=== PATIENT | female | born 1985 | race American Indian/Alaskan Native ===

== ENCOUNTER 2016-05-04 12:09 | Outpatient (CLI) | payer OTHER ==
[2016-05-04 12:33] LABS: Basophils % (Auto) 0.6 % (0.0-1.8); Eosinophils % (Auto) 1.7 % (0.0-4.3); Hematocrit 38.4 % (30.3-42.9); Hemoglobin 12.8 gm/dl (10.1-14.3); Mean Corpuscular HGB Conc 33 % (30-34); Mean Corpuscular Hemoglobin 29 pg (28-32); Mean Corpuscular Volume 88 fl (79-97); Platelet Count 263 K/mm3 (140-440); Red Blood Count 4.35 M/mm3 (3.65-5.03); Red Cell Distribution Width 13.9 % (13.2-15.2); White Blood Count 4.8 K/mm3 (4.5-11.0)
[2016-05-04 13:13] LABS: Alanine Aminotransferase 15 units/L (7-56); Albumin 3.8 g/dL (3.9-5); Albumin/Globulin Ratio 1.1 %; Alkaline Phosphatase 56 units/L (35-129); Anion Gap 13 mmol/L; Bilirubin,Total 0.3 mg/dL (0.1-1.2); Blood Urea Nitrogen 8 mg/dL (7-17); Calcium 8.9 mg/dL (8.4-10.2); Carbon Dioxide 25 mmol/L (22-30); Chloride 101.7 mmol/L (98-107); Glucose 92 mg/dL (65-100); Potassium 3.8 mmol/L (3.6-5.0); Sodium 136 mmol/L (137-145); Total Protein 7.3 g/dL (6.3-8.2)
== END 2016-05-04 12:10 | disposition home or self-care (01) ==
LOC: LAB 12:09
PROVIDERS: ATTEND Internal Medicine
DX: F41.9 Anxiety disorder, unspecified (principal)
CPT/HCPCS: 36415; 80053; 85025

== ENCOUNTER 2017-11-02 10:14 | Observation (INO) | payer OTHER ==
[2017-11-02] MEDS ORDERED: ZOFRAN IV PRN (11:32)
[2017-11-02] MEDS ORDERED: COLACE PO PRN (11:32)
[2017-11-02] MEDS ORDERED: AMBIEN PO PRN (11:32)
[2017-11-02] MEDS ORDERED: TYLENOL PO PRN (11:32)
--- NOTE | 2017-11-02 11:40 | History and Physical Report ---
History of Present Illness Date of examination: 11/02/17 (sent from office elevated BP;panic attack) Date of admission: 11/02/17 10:14 History of present illness: EDC Confirmation: 01/25/2018 Gestational Age: 13 weeks Past History : 4 Term Births: 3 Premature Births: 0 Living Children: 3 Para: 3 Mult. Births: 0 Prev : 2 Prev. attempt? none Aborta: 0 Elect. Ab: 0 Spont. Ab: 0 Ectopics: 0 # 1 Delivery date: 04/09/2002 Weeks Gestation: 40 labor: no Delivery type: Hours of labor: ? Anesthesia type: epidural Delivery location: [place] Sex: Male weight: 6-0 Name: Benjamín # 2 Delivery date: 05/06/2003 Weeks Gestation: 40 labor: no Delivery type: Hours of labor: 18 Anesthesia type: epidural Delivery location: [place] Infant Sex: Female weight: 7-0 Name: Linalauriejose Comments: FRANKLYNHT # 3 Delivery date: 02/02/2010 Weeks Gestation: 39 labor: no Delivery type: Anesthesia type: spinal Delivery location: [place] Infant Sex: Male weight: 6-2 Name: Martin Past Medical History: Anxiety Hospitalizations for panic attacks Past Surgical History: (2003) (2009) Family History Summary: Other family member - Has No Family History of Ovarvian Cancer - Entered On: Other family member - Has No Family History of Colon Cancer - Entered On: 2017 Other family member - Has No Family History of Breast Cancer - Entered On: 2017 Other family member - Has Family History of Hypertension - Entered On: 07/20/2017 Social History: Patient is single Risk Factors: Smoked Tobacco Use: Never smoker Drug use: yes Substance: marijuana HIV high-risk behavior: low risk Alcohol use: no Dietary Counseling: pn yes Past Medical History 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 of genital herpes: no Genetic History Congenital Heart Defect: Mom: no Dad: no Filiberto Disease: Mom: no Dad: no Thalassemia Mom: no Dad: no Neural Tube Defect Mom: no Dad: no Down's Syndrome Mom: no Dad: no Morgan-Sachs Mom: no Dad: no Sickle Cell Disease/Trait Mom: no Dad: no Hemophilia Mom: no Dad: no Muscular Dystrophy Mom: no Dad: no Cystic Fibrosis Mom: no Dad: no [place] Chorea Mom: no Dad: no Mental Retardation Mom: no Dad: no Fragile X Mom: no Dad: no Other Genetic/Chromosomal Disorder Mom: no Dad: no Child w/other defect Mom: no Dad: no Enviromental Exposures Xray Exposure: no Medication, drug, or alcohol use since LMP: yes Chemical/Other Exposure: no Exposure to Cat Liter: no Current Allergies (reviewed today): * PNC (Critical) Past History - Obstetrical History Expected Date of Delivery: 01/25/18 Actual Gestation: 28 Week(s) 0 Day(s) : 4 Para: 3 (c/s X 2) Hx # Term Pregnancies: 3 Number of Living Children: 3 Medications and Allergies Allergies Allergy/AdvReac Type Severity Reaction Status Date / Time Penicillins AdvReac Severe Swelling Verified 11/02/17 12:24 - Vital Signs Vital signs: Vital Signs Pulse Pulse Ox 70 98 11/02/17 10:16 11/02/17 10:16 Temp Pulse Resp BP Pulse Ox 70 98 11/02/17 10:16 11/02/17 10:16 - Physical Exam Breasts: Positive: deferred Cardiovascular: Regular rate, Normal S1, Normal S2 Lungs: Positive: Clear to auscultation, Normal air movement Abdomen: Positive: normal appearance, soft, normal bowel sounds. Negative: distention, tenderness Genitourinary (Female): Positive: normal external genitalia Vulva: both: normal Vagina: Positive: normal moisture. Negative: discharge Cervix: Negative: lesion, discharge Uterus: Positive: normal size, normal contour Adnexa: both: normal Anus/Rectum: Positive: normal perianal skin, heme negative. Negative: rectal mass, hemorrhoids Extremities: Positive: edema Deep Tendon Reflex Grade: Normal +2 - Obstetrical FHR: auscultation normal (doppler in office; Will have EFM when admitted) Uterine Contraction Pattern: Absent Uterine Tone Measurement Phase: Resting Results All other labs normal. HBsAg Screen Negative Negative *1 RPR Non Reactive Non Reactive *2 Rubella Antibodies, IgG 2.02 index Immune >0.99 *3 Non-immune <0.90 Equivocal 0.90 - 0.99 Immune >0.99 ABO Grouping O *4 Rh Factor Positive *5 Please note: Prior records for this patient's ABO / Rh type are not available for additional verification. Antibody Screen Negative Negative *6 WBC 6.4 x10E3/uL 3.4-10.8 *7 RBC 4.19 x10E6/uL 3.77-5.28 *8 Hemoglobin 12.7 g/dL 11.1-15.9 *9 Hematocrit 39.0 % 34.0-46.6 *10 MCV 93 fL 79-97 *11 MCH 30.3 pg 26.6-33.0 *12 MCHC 32.6 g/dL 31.5-35.7 *13 RDW 14.6 % 12.3-15.4 *14 Platelets 258 x10E3/uL 150-379 *15 Neutrophils 61 % Not Estab. *16 Lymphs 31 % Not Estab. *17 Monocytes 7 % Not Estab. *18 Eos 1 % Not Estab. *19 Basos 0 % Not Estab. *20 ! Immature Cells <No Reported Value> *21 Neutrophils (Absolute) 3.9 x10E3/uL 1.4-7.0 *22 Lymphs (Absolute) 2.0 x10E3/uL 0.7-3.1 *23 Monocytes(Absolute) 0.4 x10E3/uL 0.1-0.9 *24 Eos (Absolute) 0.1 x10E3/uL 0.0-0.4 *25 Baso (Absolute) 0.0 x10E3/uL 0.0-0.2 *26 ! Immature Granulocytes 0 % Not Estab. *27 ! Immature Grans (Abs) 0.0 x10E3/uL 0.0-0.1 *28 ! NRBC <No Reported Value> *29 Hematology Comments: <No Reported Value> *30 Tests: (2) Panel 769113 ([id number]) HIV Screen 4th Generation wRfx Non Reactive Non Reactive *31 Tests: (3) HCV Ab w/Rflx to Verification ([id number]) ! HCV Ab <0.1 s/co ratio 0.0-0.9 *32 Tests: (4) Comment: ([id number]) ! Comment: SPRCS *33 Non reactive HCV antibody screen is consistent with no HCV infection, unless recent infection is suspected or other evidence exists to indicate HCV infection. Tests: (5) Urine Culture, Routine ([id number]) Urine Culture, Routine Final report *34 Tests: (6) Result ([id number]) ! Result 1 MUG *35 Mixed urogenital janel 25,000-50,000 colony forming units per mL Assessment and Plan 32yo @ 28 weeks with elevated BP in office. Pt c/o panic attack today that is worse. She denies JACOBS, blurred vision, chest pain. Will continue medications: prozac, ASA 81mg, IVFs ordered, 24hr urine to be completed. Monitor BPs US for BPP and YOSHI/EFW. aware. - Patient Problems (1) 28 weeks gestation of Onset Date: ~11/02/17 Current Visit: Yes Status: Acute (2) Anxiety attack Onset Date: ~11/02/17 Current Visit: Yes Status: Acute (3) Edema during in third trimester Onset Date: ~11/02/17 Current Visit: Yes Status: Acute (4) Elevated blood pressure complicating in third trimester, antepartum Onset Date: ~11/02/17 Current Visit: Yes Status: Acute (5) Morbid obesity with BMI of 40.0-44.9, adult Onset Date: ~11/02/17 Current Visit: Yes Status: Acute (6) Panic attack Onset Date: ~11/02/17 Current Visit: Yes Status: Acute (7) Previous section Onset Date: ~11/02/17 Current Visit: Yes Status: Acute
[2017-11-02] MEDS ORDERED: LACTATED RINGERS 1,000 ML IV SCH (12:00)
[2017-11-02] MEDS ORDERED: LOPRESSOR PO SCH (12:00)
[2017-11-02 14:38] LABS: Basophils % (Auto) 0.3 % (0.0-1.8); Eosinophils # (Auto) 0.1 K/mm3 (0.0-0.4); Eosinophils % (Auto) 0.8 % (0.0-4.3); Hematocrit 34.4 % (30.3-42.9); Hemoglobin 12.1 gm/dl (10.1-14.3); Lymphocytes # (Auto) 2.2 K/mm3 (1.2-5.4); Lymphocytes % (Auto) 31.2 % (13.4-35.0); Mean Corpuscular HGB Conc 35 % (30-34); Mean Corpuscular Hemoglobin 32 pg (28-32); Mean Corpuscular Volume 91 fl (79-97); Monocytes # (Auto) 0.3 K/mm3 (0.0-0.8); Monocytes % (Auto) 4.1 % (0.0-7.3); Platelet Count 228 K/mm3 (140-440); Red Blood Count 3.78 M/mm3 (3.65-5.03); Red Cell Distribution Width 13.5 % (13.2-15.2)
[2017-11-02 14:52] LABS: Alanine Aminotransferase 21 units/L (7-56); Uric Acid 2.1 mg/dL (3.5-7.6)
[2017-11-02] MEDS: PROzac PO SCH (15:33)
[2017-11-02] MEDS: BABY ASPIRIN PO SCH (15:34)
[2017-11-02 16:02] LABS: Bacteria,Urine 1+ /HPF (Negative); Bilirubin,Urine NEG (Negative); Blood,Urine NEG (Negative); Color,Urine Yellow (Yellow); Mucus,Urine 3+ /HPF
[2017-11-02 16:13] LABS: Amphetamine Screen,Urine PRESUMPTIVE NEGATIVE; Benzodiazepines Screen,Urine PRESUMPTIVE NEGATIVE; Cocaine Screen,Urine PRESUMPTIVE NEGATIVE; Methadone Screen,Urine PRESUMPTIVE NEGATIVE; Opiate Screen,Urine PRESUMPTIVE NEGATIVE
[2017-11-02 16:32] LABS: Cannabinoid Screen,Urine PRESUMPTIVE POSITIVE
[2017-11-02] MEDS ORDERED: ATIVAN PO SCH (22:00)
--- NOTE | 2017-11-02 23:24 | Ultrasound Report ---
FINAL REPORT PROCEDURE: US OB FOLLOW UP TECHNIQUE: Real-time transabdominal sonography of the uterus, placenta, amniotic fluid, adnexa, and fetus was performed with image documentation. Measurements were obtained to determine age/size. M-mode Doppler was used to document heartbeat. CPT 21157 HISTORY: elevated blood pressure COMPARISON: No prior studies are available for comparison. FINDINGS: ADDITIONAL GESTATION: None. GENERAL: IUP: Single living intrauterine . Position: Cephalic Placental position: Posterior, without previa. Amniotic fluid volume: Normal. MATERNAL: Uterus: Within normal limits. Cervical length: 4.3 cm. Internal Os: Closed. FETUS: Heart rate and rhythm: 157 beats per minute, regular MEASUREMENTS: BPD: 6.7 centimeters corresponding to 27 weeks and 0 days HC: 24.9 centimeters corresponding to 27 weeks and 0 days AC: 22.6 centimeters corresponding to 27 weeks and 0 days FL: 5.4 centimeters corresponding to 28 weeks and 3 days Mean Gestational Age (composite criteria): 27 weeks and 3 days Ratio biometry: Normal. Estimated Weight: 1083 grams. Estimated Due Date): 01/29/2018 IMPRESSION: Single intrauterine gestation at 27 weeks and 3 days. Estimated due date: 01/29/2018. Growth.
--- NOTE | 2017-11-02 23:25 | Ultrasound Report ---
FINAL REPORT PROCEDURE: US OB BPP WO NON-STRESS TECHNIQUE: Sonographic evaluation for breathing, movement, tone, and amniotic fluid volume was performed. CPT 67359 HISTORY: elevated blood pressure COMPARISON: No prior studies are available for comparison. FINDINGS: Amniotic fluid volume: Normal-score 2. At least one vertical pocket > 2 cm or more in vertical axis. breathing: Normal-score 2. movement: Normal-score 2. tone: Normal. Score: 8 of 8. IMPRESSION: Normal biophysical profile.
[2017-11-03 06:18] VITALS: BP 120/70
--- NOTE | 2017-11-03 08:12 | Progress Note ---
Assessment and Plan patient resting w/o complaints, 24h urine in progress done @ 1240 today.VSSAF. b /p's normal. She denies JACOBS, visual changes, epigastric, ctx, vag bleeding or leaking. Patient reports + FM. Plan of care to be reassessed after 24h urine results. - Patient Problems (1) 28 weeks gestation of Onset Date: ~11/02/17 Current Visit: Yes Status: Acute (2) Anxiety attack Onset Date: ~11/02/17 Current Visit: Yes Status: Acute (3) Elevated blood pressure complicating in third trimester, antepartum Onset Date: ~11/02/17 Current Visit: Yes Status: Acute Subjective - Subjective Date of service: 11/03/17 Principal diagnosis: IUP @ 28+1 - 24h urine in progress Patient reports: other (denies JACOBS, visual changes or epigastric pain), no new complaints Objective - Vital Signs Vital Signs: Vital Signs - 12hr 11/02/17 11/02/17 11/02/17 20:10 20:15 20:20 Temperature Pulse Rate 86 86 79 Respiratory Rate Blood Pressure Blood Pressure [Left] O2 Sat by Pulse 100 99 96 Oximetry 11/02/17 11/02/17 11/02/17 20:21 20:25 20:26 Temperature Pulse Rate 76 86 78 Respiratory Rate Blood Pressure Blood Pressure [Left] O2 Sat by Pulse 93 96 94 Oximetry 11/02/17 11/02/17 11/02/17 20:30 20:35 20:40 Temperature Pulse Rate 80 75 77 Respiratory Rate Blood Pressure Blood Pressure [Left] O2 Sat by Pulse 99 98 95 Oximetry 11/02/17 11/02/17 11/02/17 20:45 20:50 20:55 Temperature Pulse Rate 78 81 79 Respiratory Rate Blood Pressure Blood Pressure [Left] O2 Sat by Pulse 99 97 98 Oximetry 11/02/17 11/02/17 11/02/17 21:00 21:05 21:10 Temperature Pulse Rate 92 H 80 82 Respiratory Rate Blood Pressure Blood Pressure [Left] O2 Sat by Pulse 100 100 99 Oximetry 11/02/17 11/02/17 11/02/17 21:15 21:20 21:25 Temperature Pulse Rate 80 87 83 Respiratory Rate Blood Pressure Blood Pressure [Left] O2 Sat by Pulse 99 99 100 Oximetry 11/02/17 11/02/17 11/02/17 21:30 21:35 21:40 Temperature Pulse Rate 84 79 85 Respiratory Rate Blood Pressure Blood Pressure [Left] O2 Sat by Pulse 100 100 100 Oximetry 11/02/17 11/02/17 11/02/17 21:45 21:50 21:55 Temperature Pulse Rate 79 83 73 Respiratory Rate Blood Pressure 102/56 Blood Pressure [Left] O2 Sat by Pulse 100 100 100 Oximetry 11/02/17 11/02/17 11/02/17 22:00 22:08 22:09 Temperature Pulse Rate 85 87 105 H Respiratory Rate Blood Pressure Blood Pressure [Left] O2 Sat by Pulse 99 40 L 79 L Oximetry 11/02/17 11/02/17 11/02/17 22:14 22:15 22:19 Temperature 98.7 F Pulse Rate 81 80 Respiratory Rate Blood Pressure Blood Pressure [Left] O2 Sat by Pulse 100 100 Oximetry 11/02/17 11/02/17 11/02/17 22:24 22:29 22:34 Temperature Pulse Rate 76 71 75 Respiratory Rate Blood Pressure Blood Pressure [Left] O2 Sat by Pulse 99 98 99 Oximetry 11/02/17 11/02/17 11/02/17 22:39 22:44 22:49 Temperature Pulse Rate 78 81 83 Respiratory Rate Blood Pressure Blood Pressure [Left] O2 Sat by Pulse 99 99 82 L Oximetry 11/02/17 11/02/17 11/02/17 22:50 22:55 23:00 Temperature Pulse Rate 80 75 69 Respiratory Rate Blood Pressure Blood Pressure [Left] O2 Sat by Pulse 100 100 99 Oximetry 11/02/17 11/02/17 11/02/17 23:05 23:10 23:15 Temperature Pulse Rate 76 76 76 Respiratory Rate Blood Pressure Blood Pressure [Left] O2 Sat by Pulse 99 99 100 Oximetry 11/02/17 11/02/17 11/02/17 23:20 23:25 23:30 Temperature Pulse Rate 72 72 78 Respiratory Rate Blood Pressure Blood Pressure [Left] O2 Sat by Pulse 100 100 100 Oximetry 11/02/17 11/02/17 11/02/17 23:35 23:40 23:45 Temperature Pulse Rate 79 74 85 Respiratory Rate Blood Pressure 117/54 Blood Pressure [Left] O2 Sat by Pulse 100 100 99 Oximetry 09/27/18 09/27/18 09/28/18 23:54 23:55 00:00 Temperature Pulse Rate 84 83 Respiratory Rate Blood Pressure Blood Pressure [Left] O2 Sat by Pulse 76 L 96 97 Oximetry 11/03/17 11/03/17 11/03/17 00:05 00:10 00:15 Temperature Pulse Rate 78 78 70 Respiratory Rate Blood Pressure Blood Pressure [Left] O2 Sat by Pulse 100 100 100 Oximetry 11/03/17 11/03/17 11/03/17 00:17 00:20 00:25 Temperature Pulse Rate 82 75 69 Respiratory Rate Blood Pressure 128/76 Blood Pressure [Left] O2 Sat by Pulse 99 99 Oximetry 11/03/17 11/03/17 11/03/17 00:30 00:35 00:40 Temperature Pulse Rate 94 H 84 75 Respiratory Rate Blood Pressure Blood Pressure [Left] O2 Sat by Pulse 98 99 100 Oximetry 11/03/17 11/03/17 11/03/17 00:45 00:50 00:55 Temperature Pulse Rate 79 73 78 Respiratory Rate Blood Pressure Blood Pressure [Left] O2 Sat by Pulse 99 100 97 Oximetry 11/03/17 11/03/17 11/03/17 01:00 01:05 01:10 Temperature Pulse Rate 78 80 79 Respiratory Rate Blood Pressure Blood Pressure [Left] O2 Sat by Pulse 98 98 98 Oximetry 11/03/17 11/03/17 11/03/17 01:15 01:20 01:25 Temperature Pulse Rate 77 80 82 Respiratory Rate Blood Pressure Blood Pressure [Left] O2 Sat by Pulse 98 98 99 Oximetry 11/03/17 11/03/17 11/03/17 01:30 01:32 01:35 Temperature Pulse Rate 85 70 83 Respiratory Rate Blood Pressure Blood Pressure [Left] O2 Sat by Pulse 100 79 L 98 Oximetry 11/03/17 11/03/17 11/03/17 01:40 01:45 01:50 Temperature Pulse Rate 83 98 H 85 Respiratory Rate Blood Pressure Blood Pressure [Left] O2 Sat by Pulse 99 100 100 Oximetry 11/03/17 11/03/17 11/03/17 01:59 02:03 02:04 Temperature Pulse Rate 79 82 86 Respiratory Rate Blood Pressure 123/76 Blood Pressure [Left] O2 Sat by Pulse 100 100 Oximetry 11/03/17 11/03/17 11/03/17 02:09 02:14 02:15 Temperature 98.5 F Pulse Rate 83 81 Respiratory Rate Blood Pressure Blood Pressure [Left] O2 Sat by Pulse 100 99 Oximetry 11/03/17 11/03/17 11/03/17 02:19 02:24 02:29 Temperature Pulse Rate 74 91 H 80 Respiratory Rate Blood Pressure Blood Pressure [Left] O2 Sat by Pulse 98 99 99 Oximetry 11/03/17 11/03/17 11/03/17 02:34 02:39 02:44 Temperature Pulse Rate 81 76 82 Respiratory Rate Blood Pressure Blood Pressure [Left] O2 Sat by Pulse 98 98 98 Oximetry 11/03/17 11/03/17 11/03/17 02:49 02:54 02:59 Temperature Pulse Rate 88 79 83 Respiratory Rate Blood Pressure Blood Pressure [Left] O2 Sat by Pulse 99 98 98 Oximetry 11/03/17 11/03/17 11/03/17 03:04 03:09 03:14 Temperature Pulse Rate 83 78 75 Respiratory Rate Blood Pressure Blood Pressure [Left] O2 Sat by Pulse 100 100 100 Oximetry 11/03/17 11/03/17 11/03/17 03:19 03:24 03:29 Temperature Pulse Rate 79 81 83 Respiratory Rate Blood Pressure Blood Pressure [Left] O2 Sat by Pulse 99 98 98 Oximetry 11/03/17 11/03/17 11/03/17 03:34 03:39 03:44 Temperature Pulse Rate 79 83 81 Respiratory Rate Blood Pressure Blood Pressure [Left] O2 Sat by Pulse 99 97 97 Oximetry 11/03/17 11/03/17 11/03/17 03:45 03:49 03:54 Temperature Pulse Rate 90 74 74 Respiratory Rate Blood Pressure 119/62 Blood Pressure [Left] O2 Sat by Pulse 98 97 Oximetry 11/03/17 11/03/17 11/03/17 03:59 04:04 04:09 Temperature Pulse Rate 81 82 82 Respiratory Rate Blood Pressure Blood Pressure [Left] O2 Sat by Pulse 97 97 97 Oximetry 11/03/17 11/03/17 11/03/17 04:14 04:19 04:24 Temperature Pulse Rate 69 80 84 Respiratory Rate Blood Pressure Blood Pressure [Left] O2 Sat by Pulse 99 99 97 Oximetry 11/03/17 11/03/17 11/03/17 04:29 04:34 04:39 Temperature Pulse Rate 88 86 86 Respiratory Rate Blood Pressure Blood Pressure [Left] O2 Sat by Pulse 98 99 98 Oximetry 11/03/17 11/03/17 11/03/17 04:44 04:49 04:54 Temperature Pulse Rate 85 85 85 Respiratory Rate Blood Pressure Blood Pressure [Left] O2 Sat by Pulse 97 97 97 Oximetry 11/03/17 11/03/17 11/03/17 04:59 05:04 05:09 Temperature Pulse Rate 78 80 76 Respiratory Rate Blood Pressure Blood Pressure [Left] O2 Sat by Pulse 98 100 100 Oximetry 11/03/17 11/03/17 11/03/17 05:14 05:19 05:24 Temperature Pulse Rate 80 85 86 Respiratory Rate Blood Pressure Blood Pressure [Left] O2 Sat by Pulse 99 98 99 Oximetry 11/03/17 11/03/17 11/03/17 05:29 05:34 05:39 Temperature Pulse Rate 83 85 86 Respiratory Rate Blood Pressure Blood Pressure [Left] O2 Sat by Pulse 98 98 98 Oximetry 11/03/17 11/03/17 11/03/17 05:44 05:45 05:49 Temperature Pulse Rate 88 86 81 Respiratory Rate Blood Pressure 101/61 Blood Pressure [Left] O2 Sat by Pulse 98 100 Oximetry 11/03/17 11/03/17 11/03/17 05:54 05:59 06:04 Temperature Pulse Rate 85 85 78 Respiratory Rate Blood Pressure Blood Pressure [Left] O2 Sat by Pulse 99 100 100 Oximetry 11/03/17 11/03/17 11/03/17 06:09 06:14 06:19 Temperature 98.7 F Pulse Rate 87 84 91 H Respiratory 18 Rate Blood Pressure 120/70 Blood Pressure 120/70 [Left] O2 Sat by Pulse 99 100 100 Oximetry - Exam Breasts: normal Cardiovascular: Regular rate Lungs: Clear to auscultation, Normal air movement Abdomen: Present: normal appearance, soft Vulva: both: normal Uterus: Present: normal Extremities: normal Deep Tendon Reflex Grade: Normal +2 - Labs Labs: Abnormal Labs 11/02/17 11/02/17 11/02/17 14:20 14:20 15:45 MCHC 35 H Creatinine 0.4 L Uric Acid 2.1 L Urine WBC (Auto) 35.0 H U Epithel Cells (Auto) 15.0 H Laboratory Results - last 24 hr 11/02/17 11/02/17 11/02/17 14:20 14:20 15:45 WBC 7.2 RBC 3.78 Hgb 12.1 Hct 34.4 MCV 91 MCH 32 MCHC 35 H RDW 13.5 Plt Count 228 Lymph % (Auto) 31.2 [place] % (Auto) 4.1 Eos % (Auto) 0.8 Baso % (Auto) 0.3 Lymph # 2.2 [place] # 0.3 Eos # 0.1 Baso # 0.0 Seg Neutrophils % 63.6 Seg Neutrophils # 4.6 Creatinine 0.4 L Estimated GFR > 60 Uric Acid 2.1 L AST 18 ALT 21 Lactate Dehydrogenase 154 Urine Color Yellow Urine Turbidity Slightly-cloudy Urine pH 6.0 Ur Specific [place] 1.024 Urine Protein 30 mg/dl Urine Glucose (UA) Neg Urine Ketones 80 Urine Blood Neg Urine Nitrite Neg Urine Bilirubin Neg Urine Urobilinogen 4.0 Ur Leukocyte Esterase Mod Urine WBC (Auto) 35.0 H Urine RBC (Auto) 7.0 U Epithel Cells (Auto) 15.0 H Urine Bacteria (Auto) 1+ Urine Mucus 3+ Urine Opiates Screen Urine Methadone Screen Ur Barbiturates Screen Ur Phencyclidine Scrn Ur Amphetamines Screen U Benzodiazepines Scrn Urine Cocaine Screen U Marijuana (THC) Screen Drugs of Abuse Note 11/02/17 15:45 WBC RBC Hgb Hct MCV MCH MCHC RDW Plt Count Lymph % (Auto) [place] % (Auto) Eos % (Auto) Baso % (Auto) Lymph # [place] # Eos # Baso # Seg Neutrophils % Seg Neutrophils # Creatinine Estimated GFR Uric Acid AST ALT Lactate Dehydrogenase Urine Color Urine Turbidity Urine pH Ur Specific [place] Urine Protein Urine Glucose (UA) Urine Ketones Urine Blood Urine Nitrite Urine Bilirubin Urine Urobilinogen Ur Leukocyte Esterase Urine WBC (Auto) Urine RBC (Auto) U Epithel Cells (Auto) Urine Bacteria (Auto) Urine Mucus Urine Opiates Screen Presumptive negative Urine Methadone Screen Presumptive negative Ur Barbiturates Screen Presumptive negative Ur Phencyclidine Scrn Presumptive negative Ur Amphetamines Screen Presumptive negative U Benzodiazepines Scrn Presumptive negative Urine Cocaine Screen Presumptive negative U Marijuana (THC) Screen Presumptive positive Drugs of Abuse Note Disclamer
[2017-11-03] MEDS ORDERED: PRENATAL VITAMIN PO SCH (10:00)
[2017-11-03] MEDS: BABY ASPIRIN PO SCH (10:35)
[2017-11-03] MEDS: PROzac PO SCH (10:36)
--- NOTE | 2017-11-03 11:00 | Event Note ---
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 I D/W THAT THE DX OF PRE E HAS NOT BEEN MADE AND LEAVING WILL DISRUPT THE 24 HR URINE COLLECTION AND HENCE DX STILL CAN'T BE MADE. HER BPS HAVE BEEN NORMAL AND SHE HAS NOT HAD ANY MEDICATIONS. SHE ADMITS TO HAVING HAD ANXIETY AND BEING STRESSED THE DAY OF ADMISSION. SHE HAS NO FAMILY SUPPORT AND HER ONLY SUPPORT SHE HAD PREVIOUSLY WAS HER MOTHER WHO IN RECENT YEARS. PT EXPRESSED UNDERSTANDING AND STATES THAT SHE WILL TRY TO COME BACK. I ADVISED THAT WHEN SHE ODES RETURN, IF SHE DOES, THE 24 HR URINE WILL NEED TO BE REPEATED AND STARTED AGAIN. SHE EXPRESSED UNDERSTANDING AND ALL QUESTIONS WERE ADDRESSED AND ANSWERED.
== END 2017-11-03 11:30 | disposition left against medical advice (07) ==
LOC: LD 10:14 → INTOOBSV 10:14 → LD 10:28
PROVIDERS: ADMIT Obstetrics & Gynecology; ATTEND Obstetrics & Gynecology
DX: O13.3 Gestational [pregnancy-induced] hypertension without significant proteinuria, third trimester (principal); O99.343 Other mental disorders complicating pregnancy, third trimester; F41.0 Panic disorder [episodic paroxysmal anxiety]; O99.213 Obesity complicating pregnancy, third trimester; E66.01 Morbid (severe) obesity due to excess calories; O12.03 Gestational edema, third trimester; O34.219 Maternal care for unspecified type scar from previous cesarean delivery; Z3A.28 28 weeks gestation of pregnancy; Z68.41 Body mass index [BMI] 40.0-44.9, adult; Z79.899 Other long term (current) drug therapy
CPT/HCPCS: 36415; 76816; 76819; 80307; 81001; 82565; 83615; 84450; 84460; 84550; 85025; G0378; G0379; J7120

== ENCOUNTER 2019-07-04 12:35 | Emergency (ER) | payer OTHER ==
[2019-07-04] MEDS ORDERED: IBUPROFEN 800 MG TAB PO ONE (13:11)
[2019-07-04] MEDS ORDERED: HYDROcodone/ACETAMINOPHEN 5-325 MG TAB PO ONE (13:11)
--- NOTE | 2019-07-04 14:32 | Cat Scan Report ---
CT head/brain wo con INDICATION / CLINICAL INFORMATION: 34 years Female; head trauma amnesia. TECHNIQUE: Routine CT head without contrast. All CT scans at this location are performed using CT dos e reduction for ALARA by means of automated exposure control. COMPARISON: None. FINDINGS: BRAIN / INTRACRANIAL CONTENTS: The brain parenchyma appears to demonstrate appropriate attenuation. T here is incidental calcification along the falx and right tentorium. There is notable left periorbita l soft tissue edema. The CT facial bones will be dictated separately. There is no definitive CT evide nce of acute intracranial hemorrhage or significant mass effect. The ventricular system is appropriat e in size and configuration. ORBITS: As above. SINUSES / MASTOIDS: The visualized paranasal sinuses are pneumatized. CRANIOCERVICAL JUNCTION: No significant abnormality. ADDITIONAL FINDINGS: None. IMPRESSION: 1. There is prominent left periorbital hematoma. However, there is no CT evidence of acute intracrani al hemorrhage. The CT facial bones will be dictated separately. Signer Name: Bryan Cobb MD Signed: 07/04/2019 2:28 PM Workstation Name: [id number]
--- NOTE | 2019-07-04 14:38 | Cat Scan Report ---
CT facial bones without contrast. CLINICAL HISTORY: Facial pain and trauma. FINDINGS: There is extensive a left periorbital and premaxillary soft tissue hematoma and edema. Valentino vince, there is no clear CT evidence of acute fracture involving the facial bones. The orbital collazo an d zygomatic arches appear intact. There is mild deviation of the nasal septum toward the right. There is mild focal opacification withi n the left ethmoid air cells at. The optic globes appear to demonstrate appropriate size and configur ation. No significant post septal inflammatory changes are appreciated. All CT scans at this location are performed using the CT dose reduction for ALARA by means of automated exposure control. IMPRESSION: There is extensive left periorbital and premaxillary soft tissue hematoma. However, there is no CT ev idence of acute fracture involving the facial bones. Signer Name: Bryan Cobb MD Signed: 07/04/2019 2:34 PM Workstation Name: [id number]
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
[2019-07-04 15:39] VITALS: BP 136/76
== END 2019-07-04 15:45 | disposition home or self-care (01) ==
LOC: ED 12:35
DX: S00.83XA Contusion of other part of head, initial encounter (principal); S09.90XA Unspecified injury of head, initial encounter; T74.61XA Adult forced labor exploitation, confirmed, initial encounter; F41.9 Anxiety disorder, unspecified; Z98.890 Other specified postprocedural states; Z79.1 Long term (current) use of non-steroidal anti-inflammatories (NSAID); Z79.899 Other long term (current) drug therapy; Z88.0 Allergy status to penicillin; Y07.03 Male partner, perpetrator of maltreatment and neglect; Y04.2XXA Assault by strike against or bumped into by another person, initial encounter; Y93.89 Activity, other specified; Y92.009 Unspecified place in unspecified non-institutional (private) residence as the place of occurrence of the external cause; Y99.8 Other external cause status
CPT/HCPCS: 70450; 70486